=== PATIENT | female | born 1975 | race Caucasian/White ===

== ENCOUNTER 2017-10-09 22:43 | Emergency (ER) | payer OTHER, MEDICAID ==
[~2017-10-09] VITALS: Ht 160 cm; Wt 56.7 kg
[~2017-10-09 22:43] MED LIST: ACETAMINOPHEN-1 EAC1 PO; AFRIN15 ML NS; ASPIR 8181 MG PO; BACTRIM 400-801 EACH PO; BACTRIM DS TAB1 EACH PO; BENTYL 20 MG TA20 M1 PO; CIPROFLOXACIN500 M1 PO; CIPROFLOXACIN500 M3 PO; CIPROFLOXIN HC2.5 M1 OPHTHALMIC; CLEOCIN HCL150 MG PO; CLEOCIN HCL300 MG PO; FLOMAX0.4 MG PO; HYDROCODON-ACE1 EAC7 PO; HYDROCODONE-AP1 EAC6 PO; IBUPROFEN 800800 M1 PO; KEFLEX500 M1 PO; KLOR-CON 1010 MEQ PO; LAMISIL15 GM TP; LEXAPRO 10 MG T10 MG PO; LEXAPRO20 MG; LEXAPRO20 MG PO; MACROBID 100 M100 M1 PO; NOHOMEMEDICATIONS; NORCO 10-325 T1 EACH PO; NORCO 5-325 TA1 EACH PO; OMEPRAZOLE; ONDANSETRON HCL4 M2 PO; OXYBUTYNIN 5 MG5 M1 PO; PERCOCET 10-321 EACH OR; PERCOCET 10-321 EACH PO; PERCOCET 5-3251 EACH PO; PERCOCET 7.5-31 EACH PO; PERCOCET PO; PRILOSEC40 MG OR; VICODIN 5-3001 EACH PO; VICODIN 5-5001 EACH PO; ZOFRAN 4 MG ORAL4 M1 DIS; ZOFRAN ODT4 MG PO; ZOFRAN4 MG PO
[2017-10-09 23:07] LABS: URINE BILIRUBIN NEGATIVE (Negative); URINE BLOOD 3+ (Negative); URINE CLARITY CLEAR; URINE COLOR YELLOW; URINE GLUCOSE-RANDOM NEGATIVE (Negative); URINE KETONES NEGATIVE (Negative); URINE LEUKOCYTES-REFLEX NEGATIVE (Negative); URINE NITRITE-REFLEX NEGATIVE (Negative); URINE PROTEIN NEGATIVE (Negative); URINE SPECIFIC GRAVITY <= 1.005 (1.005-1.030); URINE UROBILINOGEN 0.2 E.U./dl (0.2-1.0)
[2017-10-09 23:14] LABS: CASTS None Seen /LPF (None Seen); CRYSTALS None Seen /LPF (None Seen); MUCUS 0-3 Light strn/LPF (None Seen); SQUAMOUS 0-3 Few /LPF (0-3); URINE RBC >20 Many /HPF (0-2); URINE WBC-REFLEX 0-5 Rare /HPF (0-5)
[2017-10-09 23:24] LABS: ABSOLUTE BASOPHILS 0.1 thou/uL (0.0-0.2); ABSOLUTE EOSINOPHILS 0.4 thou/uL (0.0-0.7); ABSOLUTE LYMPHOCYTES 3.1 thou/uL (0.8-5.3); ABSOLUTE MONOCYTES 0.6 thou/uL (0.0-1.2); ABSOLUTE NEUTROPHILS 2.4 thou/uL (1.6-8.1); BASOPHILS 1.2 %; EOSINOPHILS 5.6 %; HEMATOCRIT 40.1 % (37.0-47.0); HEMOGLOBIN 13.3 gm/dL (12.0-15.0); LYMPHOCYTES 48.3 %; MCV 84.8 fL (80.0-100.0); MONOCYTES 8.5 %; MPV 8.5 fl. (7.2-11.1); NUCLEATED RBCS 0 /100WBC; PLATELET COUNT* 238 thou/uL (150-400); POLYS 36.4 %; RBC 4.74 mil/uL (4.20-5.00); RDW-CV 14.3 % (10.5-14.5); WBC 6.5 thou/uL (4.0-11.0)
[2017-10-09 23:29] LABS: CALCIUM 8.6 mg/dL (8.5-10.1); CREATININE 0.8 mg/dL (0.6-1.3); POTASSIUM 3.5 mmol/L (3.5-5.1)
[2017-10-09 23:38] LABS: ALBUMIN 3.8 g/dL (3.4-5.0); TOTAL BILIRUBIN 0.1 mg/dL (<0.1-1.0); TOTAL PROTEIN 7.7 g/dL (6.4-8.2)
[2017-10-10 02:20] LABS: AMP/METHAMP Negative (Negative); BARBITURATES Negative (Negative); BENZODIAZEPINES Negative (Negative); COCAINE Negative (Negative); METHADONE Negative (Negative); OPIATES POSITIVE (Negative); PCP Negative (Negative); THC Negative (Negative)
[2017-10-10] MEDS ORDERED: FLOMAX0.4 MG PO (02:24)
[2017-10-10] MEDS ORDERED: FLEXERIL PO (02:24)
[2017-10-10] MEDS ORDERED: HYDROCODONE-AP1 EAC6 PO (02:24)
[2017-10-10 02:44] VITALS: BP 117/65
== END 2017-10-10 02:44 | disposition home or self-care (01) ==
LOC: M.ERS 22:43
PROVIDERS: Emergency Medicine; Emergency Medicine Emergency Medical Services
DX: N23 Unspecified renal colic (principal); F41.9 Anxiety disorder, unspecified; Z88.5 Allergy status to narcotic agent; Z88.8 Allergy status to other drugs, medicaments and biological substances; Z88.0 Allergy status to penicillin

== ENCOUNTER 2017-10-11 22:49 | Emergency (ER) | payer OTHER, MEDICAID ==
[~2017-10-11] VITALS: Ht 160 cm; Wt 56.7 kg
[~2017-10-11 22:49] MED LIST changes: +FLEXERIL PO
[2017-10-11 23:13] LABS: URINE BILIRUBIN NEGATIVE (Negative); URINE BLOOD 3+ (Negative); URINE CLARITY CLEAR; URINE COLOR YELLOW; URINE GLUCOSE-RANDOM NEGATIVE (Negative); URINE KETONES NEGATIVE (Negative); URINE LEUKOCYTES-REFLEX NEGATIVE (Negative); URINE NITRITE-REFLEX NEGATIVE (Negative); URINE PROTEIN NEGATIVE (Negative); URINE UROBILINOGEN 0.2 E.U./dl (0.2-1.0)
[2017-10-11 23:20] LABS: BACTERIA-REFLEX 1-9 Few /HPF (None Seen); CASTS None Seen /LPF (None Seen); CRYSTALS None Seen /LPF (None Seen); MUCUS 0-3 Light strn/LPF (None Seen); SQUAMOUS 0-3 Few /LPF (0-3); URINE RBC >20 Many /HPF (0-2); URINE WBC-REFLEX 0-5 Rare /HPF (0-5)
[2017-10-11 23:34] LABS: ABSOLUTE BASOPHILS 0.1 thou/uL (0.0-0.2); ABSOLUTE EOSINOPHILS 0.4 thou/uL (0.0-0.7); ABSOLUTE LYMPHOCYTES 2.7 thou/uL (0.8-5.3); ABSOLUTE MONOCYTES 0.6 thou/uL (0.0-1.2); ABSOLUTE NEUTROPHILS 5.1 thou/uL (1.6-8.1); HEMATOCRIT 38.5 % (37.0-47.0); HEMOGLOBIN 13.1 gm/dL (12.0-15.0); LYMPHOCYTES 30.8 %; MCH 28.5 pg (26.0-34.0); MCHC 33.9 g/dL (28.0-37.0); NUCLEATED RBCS 0 /100WBC; PLATELET COUNT* 241 thou/uL (150-400); POLYS 57.2 %; RBC 4.58 mil/uL (4.20-5.00); WBC 8.9 thou/uL (4.0-11.0)
[2017-10-12 00:05] LABS: CALCIUM 8.7 mg/dL (8.5-10.1); CREATININE 0.7 mg/dL (0.6-1.3); POTASSIUM 3.6 mmol/L (3.5-5.1)
[2017-10-12 00:15] LABS: ALBUMIN 3.7 g/dL (3.4-5.0); TOTAL BILIRUBIN 0.1 mg/dL (<0.1-1.0); TOTAL PROTEIN 7.5 g/dL (6.4-8.2)
[2017-10-12] MEDS ORDERED: BACTRIM DS TAB1 EACH PO (01:17)
[2017-10-12] MEDS ORDERED: MIRALAX17 GM PO (01:17)
[2017-10-12] MEDS ORDERED: PHENAZOPYRIDIN200 M2 PO (01:17)
[2017-10-12 01:34] VITALS: BP 105/69
== END 2017-10-12 01:34 | disposition home or self-care (01) ==
LOC: M.ERS 22:49
PROVIDERS: Emergency Medicine Emergency Medical Services
DX: R10.9 Unspecified abdominal pain (principal); K59.00 Constipation, unspecified; N39.0 Urinary tract infection, site not specified; R31.9 Hematuria, unspecified; F41.9 Anxiety disorder, unspecified; Z88.0 Allergy status to penicillin; Z88.8 Allergy status to other drugs, medicaments and biological substances; Z87.442 Personal history of urinary calculi

== ENCOUNTER 2018-01-05 18:07 | Emergency (ER) | payer OTHER, MEDICAID ==
[~2018-01-05] VITALS: Ht 160 cm; Wt 56.7 kg
[~2018-01-05 18:07] MED LIST changes: +MIRALAX17 GM PO; +PHENAZOPYRIDIN200 M2 PO
[2018-01-05 19:28] VITALS: BP 134/86
== END 2018-01-05 19:30 | disposition home or self-care (01) ==
LOC: M.ERS 18:07
DX: S93.491A Sprain of other ligament of right ankle, initial encounter (principal); F41.9 Anxiety disorder, unspecified; Z87.442 Personal history of urinary calculi; Z88.0 Allergy status to penicillin; Z88.8 Allergy status to other drugs, medicaments and biological substances; X58.XXXA Exposure to other specified factors, initial encounter; Y93.89 Activity, other specified; Y92.89 Other specified places as the place of occurrence of the external cause; Y99.8 Other external cause status

== ENCOUNTER 2018-08-24 20:32 | Emergency (ER) | payer OTHER, MEDICAID ==
[~2018-08-24] VITALS: Ht 160 cm; Wt 61.2 kg
[2018-08-24] MEDS ORDERED: CLONAZEPAM 0.50.5 M1 (20:41)
[2018-08-24 20:52] LABS: URINE BILIRUBIN NEGATIVE (Negative); URINE BLOOD 3+ (Negative); URINE CLARITY HAZY; URINE COLOR YELLOW; URINE GLUCOSE-RANDOM NEGATIVE (Negative); URINE KETONES NEGATIVE (Negative); URINE LEUKOCYTES-REFLEX NEGATIVE (Negative); URINE NITRITE-REFLEX NEGATIVE (Negative); URINE PROTEIN NEGATIVE (Negative); URINE SPECIFIC GRAVITY <= 1.005 (1.005-1.030); URINE UROBILINOGEN 0.2 E.U./dl (0.2-1.0)
[2018-08-24 21:01] LABS: AMP/METHAMP Negative (Negative); BARBITURATES Negative (Negative); BENZODIAZEPINES Negative (Negative); COCAINE Negative (Negative); METHADONE Negative (Negative); OPIATES POSITIVE (Negative); PCP Negative (Negative); SQUAMOUS 0-3 Few /LPF (0-3); THC Negative (Negative)
[2018-08-24 21:02] LABS: BACTERIA-REFLEX None Seen /HPF (None Seen); CASTS None Seen /LPF (None Seen); CRYSTALS None Seen /LPF (None Seen); URINE RBC >20 Many /HPF (0-2); URINE WBC-REFLEX None Seen /HPF (0-5)
[2018-08-24 21:11] LABS: ABSOLUTE BASOPHILS 0.1 thou/uL (0.0-0.2); ABSOLUTE EOSINOPHILS 0.8 thou/uL (0.0-0.7); ABSOLUTE MONOCYTES 0.8 thou/uL (0.0-1.2); ABSOLUTE NEUTROPHILS 6.3 thou/uL (1.6-8.1); BASOPHILS 0.9 %; EOSINOPHILS 7.2 %; HEMATOCRIT 38.7 % (37.0-47.0); HEMOGLOBIN 12.8 gm/dL (12.0-15.0); LYMPHOCYTES 27.3 %; MCH 28.7 pg (26.0-34.0); MCV 87.1 fL (80.0-100.0); MONOCYTES 7.3 %; MPV 8.5 fl. (7.2-11.1); NUCLEATED RBCS 0 /100WBC; PLATELET COUNT* 264 thou/uL (150-400); POLYS 57.3 %; RBC 4.45 mil/uL (4.20-5.00); RDW-CV 13.7 % (10.5-14.5)
[2018-08-24 21:17] LABS: ANION GAP 9 mmol/L (7-16); BUN 15 mg/dL (7-18); CHLORIDE 102 mmol/L (98-107); CO2 27 mmol/L (21-32); CREATININE 0.9 mg/dL (0.6-1.3); GLUCOSE 90 mg/dL (70-99); POTASSIUM 3.7 mmol/L (3.5-5.1); SODIUM 138 mmol/L (136-145)
[2018-08-24 21:23] LABS: ALBUMIN 3.9 g/dL (3.4-5.0); ALKALINE PHOSPHATASE 102 U/L (46-116); LIPASE 132 U/L (73-393); SGOT 14 U/L (15-37); SGPT 16 U/L (30-65); TOTAL BILIRUBIN 0.2 mg/dL (<0.1-1.0); TOTAL PROTEIN 7.6 g/dL (6.4-8.2); TROPONIN-I LEVEL <0.06 ng/mL (<0.06)
[2018-08-24 21:47] VITALS: BP 108/60
== END 2018-08-24 21:48 | disposition home or self-care (01) ==
LOC: M.ERS 20:32
PROVIDERS: Emergency Medicine; Physician Assistant
DX: R10.31 Right lower quadrant pain (principal); R31.9 Hematuria, unspecified; R11.10 Vomiting, unspecified; F41.9 Anxiety disorder, unspecified; Z90.49 Acquired absence of other specified parts of digestive tract; Z87.442 Personal history of urinary calculi; Z88.0 Allergy status to penicillin; Z88.8 Allergy status to other drugs, medicaments and biological substances

== ENCOUNTER 2018-12-02 22:47 | Inpatient (IN) | payer OTHER, MEDICAID ==
[~2018-12-02] VITALS: Ht 160 cm; Wt 62.0 kg
--- NOTE | ~2018-12-02 | OP ---
[facility] [address] [place] [address] OPERATIVE REPORT Name: KASIA SALAS Room: [address] [place] .R.#: [id number] Admission: 12/03/18 Attend Phys: Arsalan Colon MD Discharge: Date of : 73 Report #: [id number] THIS REPORT FOR: //name// CC: Bhupendra Colon DATE OF SERVICE: 12/06/2018 PREOPERATIVE DIAGNOSES: 1. Right-sided flank pain. 2. History of nephrolithiasis. POSTOPERATIVE DIAGNOSES: 1. Right-sided flank pain. 2. History of nephrolithiasis. PROCEDURES PERFORMED: 1. Cystoscopy with bilateral retrograde pyelograms. 2. Right ureteroscopy, diagnostic. 3. Right 4.8 x 28 double J ureteral stent placement. SURGEON: Stephon Bautista M.D. ANESTHESIA: General endotracheal. BRIEF HISTORY: The patient is a 43-year-old female with a history of nephrolithiasis who presented to the [facility] with right-sided flank pain. Due to the patient's extensive stone history and multiple prior imaging studies, she declined CT imaging to further evaluate the source of her pain. She was admitted for observation, and her right-sided flank pain persisted. She continued to decline CT imaging. Given the above, the recommendation was made for cystoscopy with right retrograde pyelogram, possible right ureteroscopy, possible laser lithotripsy, possible stone manipulation and retrieval and right ureteral stent placement. The risks of the procedure including the risks of bleeding, infection, damage to surrounding structures, need for additional procedures and anesthetic risks were discussed with the patient and she wished to proceed. PROCEDURE IN DETAIL: The risks and benefits of surgery were discussed with the patient, and she wished to proceed. Informed consent was obtained, and the patient was transferred to the operating room where she was laid supine on the operating room table. After the induction of adequate general endotracheal anesthesia and the administration of appropriate preoperative antibiotics, the patient's legs were placed in a modified dorsal lithotomy position taking care to pad all pressure points and avoid any hyperextension or hyperflexion of her joints. The patient's genitalia were prepped and draped [place] [address] OPERATIVE REPORT Name: KASIA SALAS Room: [address] [place] [facility]#: [id number] Admission: 12/03/18 Attend Phys: Arsalan Colon MD Discharge: Date of : 73 Report #: [id number] fashion. A timeout was then performed to ensure correct patient and procedure. At this time, a 22-Bangladeshi cystoscope sheath with a 30-degree lens was lubricated and advanced under direct vision and irrigation through the urethra and into the bladder. Initial cystoscopic evaluation revealed no intravesical calculi. The cystoscope was disarticulated and the bladder was drained. Cystoscopy was then performed under direct vision and irrigation. The patient's ureteral orifices were found to be in their normal anatomic location. There were surface changes of the trigone consistent with squamous metaplasia. Systematic panendoscopy revealed no gross bladder wall pathology. There were no papillary bladder tumors or suspicious mucosal lesions identified. At this time, a 5-Bangladeshi Pollack catheter was placed in the patient's right ureteral orifice, and a right retrograde pyelogram was performed. Contrast could be seen filling the distal, mid and proximal right ureter as well as the right collecting system. There appeared to be a possible filling defect in the mid ureter at the iliac vessels. The proximal ureter was mildly dilated and somewhat tortuous as it approached the ureteropelvic junction. Given the above, the decision was made to perform ureteroscopy. A 0.035 ZIPwire was advanced into the ureter and up into the kidney under fluoroscopic guidance. The wire was clamped to the drape as a safety wire. A semi-rigid ureteroscope was then advanced into the bladder under direct vision and irrigation. Under direct vision and pressure flow irrigation, the ureteroscope was able to be easily advanced into the right ureter. The ureteroscope was advanced up beyond the iliac vessels, and there was no stone identified. In order to ensure that there was not a proximal migration of the stone under pressure flow irrigation, a decision was made then to perform flexible ureteroscopy. The rigid ureteroscope was removed and a flexible ureteroscope was advanced without difficulty into the ureter alongside the wire. The ureteroscope was able to be advanced across the distal, mid and proximal ureter without difficulty. There was no stone identified within the ureter. The ureteroscope was then advanced all the way into the kidney. Each of the patient's calices were meticulously inspected, and there were no calculi identified. The ureteroscope was withdrawn back into the ureter down to the ureterovesical junction and was readvanced. Once again, there were no ureteral calculi identified. The ureteroscope was readvanced into the collecting system where retrograde pyelogram was repeated by injecting contrast through the ureteroscope. Using the pyelogram as a road map, each of the patient's calices were meticulously inspected, washing out the contrast from each arlyn under fluoroscopic guidance. Once again, there were no renal collecting system calculi identified. The ureteroscope was then withdrawn the length of the ureter from the UPJ to the UVJ. Once again, there were no ureteral calculi identified. At this time, a 4.8 x 28 double-J ureteral stent was advanced over the safety wire and into position. The wire was withdrawn deploying the stent. A good coil of the stent was identified within the right renal pelvis under fluoroscopy, and a good coil of the stent was identified within the bladder under direct vision with the cystoscope. Given the lack of significant findings within the right system, the decision was made to perform a left retrograde pyelogram prior to concluding the case. The Pollack [place] [address] OPERATIVE REPORT Name: KASIA SALAS Room: [address] [place] [facility].#: [id number] Admission: 12/03/18 Attend Phys: Arsalan Colon MD Discharge: Date of : 73 Report #: [id number] the left ureteral orifice, and a left retrograde pyelogram was performed. Contrast could be seen filling the distal, mid and proximal left ureter as well as the left collecting system. There were no filling defects or signs of obstruction on left retrograde pyelogram. At this point, the decision was made to conclude the procedure. The cystoscope was disarticulated and the bladder was drained. The patient was returned to a supine position, awakened from anesthesia and transferred to the postoperative care unit in stable condition. The patient tolerated the procedure well. COMPLICATIONS: None. ESTIMATED BLOOD LOSS: None. IV FLUIDS: Crystalloid. DRAINS: Right 4.8 x 28 double-J ureteral stent. SPECIMENS: None. FINDINGS: 1. No gross bladder wall pathology. No intravesical calculi identified. 2. Right retrograde pyelogram demonstrating a possible filling defect of the mid ureter at the iliac vessels with proximal ureteral tortuosity and mild ectasia. 3. Right ureteroscopy demonstrating no right collecting system or ureteral calculus. 4. Right 4.8 x 28 double-J ureteral stent in good position by fluoroscopy and direct vision. 5. Normal left retrograde pyelogram. By: [id number] Bautista MD /nt
[~2018-12-02 22:47] MED LIST changes: +CLONAZEPAM 0.50.5 M1 PO
[2018-12-02 22:55] VITALS: BP 149/72
[2018-12-02] MEDS ORDERED: NORCO 10-325 T1 EACH PO (22:59)
[2018-12-02 23:00] LABS: URINE BILIRUBIN NEGATIVE (Negative); URINE BLOOD 3+ (Negative); URINE CLARITY CLEAR; URINE COLOR YELLOW; URINE GLUCOSE-RANDOM NEGATIVE (Negative); URINE KETONES NEGATIVE (Negative); URINE LEUKOCYTES-REFLEX NEGATIVE (Negative); URINE NITRITE-REFLEX NEGATIVE (Negative); URINE PROTEIN NEGATIVE (Negative); URINE UROBILINOGEN 0.2 E.U./dl (0.2-1.0)
[2018-12-02 23:11] LABS: CASTS None Seen /LPF (None Seen); CRYSTALS None Seen /LPF (None Seen); MUCUS None Seen strn/LPF (None Seen); SQUAMOUS 0-3 Few /LPF (0-3)
[2018-12-02 23:12] LABS: BACTERIA-REFLEX None Seen /HPF (None Seen); URINE WBC-REFLEX None Seen /HPF (0-5)
[2018-12-02 23:46] LABS: ABSOLUTE BASOPHILS 0.1 thou/uL (0.0-0.2); ABSOLUTE EOSINOPHILS 0.6 thou/uL (0.0-0.7); ABSOLUTE LYMPHOCYTES 2.7 thou/uL (0.8-5.3); ABSOLUTE MONOCYTES 0.5 thou/uL (0.0-1.2); ABSOLUTE NEUTROPHILS 3.6 thou/uL (1.6-8.1); BASOPHILS 1.4 %; EOSINOPHILS 7.8 %; HEMATOCRIT 37.4 % (37.0-47.0); HEMOGLOBIN 12.7 gm/dL (12.0-15.0); LYMPHOCYTES 35.4 %; MCH 29.5 pg (26.0-34.0); MCHC 34.1 g/dL (28.0-37.0); MCV 86.5 fL (80.0-100.0); MONOCYTES 7.2 %; MPV 8.3 fl. (7.2-11.1); NUCLEATED RBCS 0 /100WBC; PLATELET COUNT* 245 thou/uL (150-400); POLYS 48.2 %; RBC 4.32 mil/uL (4.20-5.00); RDW-CV 13.5 % (10.5-14.5); WBC 7.5 thou/uL (4.0-11.0)
[2018-12-02 23:55] LABS: ALBUMIN 3.3 g/dL (3.4-5.0); ALKALINE PHOSPHATASE 103 U/L (46-116); ANION GAP 6 mmol/L (7-16); BUN 13 mg/dL (7-18); CALCIUM 8.6 mg/dL (8.5-10.1); CHLORIDE 104 mmol/L (98-107); CO2 27 mmol/L (21-32); CREATININE 0.9 mg/dL (0.6-1.3); GLUCOSE 98 mg/dL (70-99); LIPASE 158 U/L (73-393); POTASSIUM 3.7 mmol/L (3.5-5.1); SGOT 12 U/L (15-37); SGPT 14 U/L (30-65); SODIUM 137 mmol/L (136-145); TOTAL BILIRUBIN < 0.1 mg/dL (<0.1-1.0); TOTAL PROTEIN 6.7 g/dL (6.4-8.2)
[2018-12-03 04:11] VITALS: BP 116/77
[2018-12-03 04:25] VITALS: BP 95/50
[2018-12-03 16:38] VITALS: BP 102/55
[2018-12-03 20:00] VITALS: BP 106/54
[2018-12-04] VITALS: BP 104/56
[2018-12-04 04:00] VITALS: BP 103/60
[2018-12-04 08:07] LABS: CALCIUM 8.1 mg/dL (8.5-10.1); CREATININE 0.7 mg/dL (0.6-1.3); POTASSIUM 4.3 mmol/L (3.5-5.1)
[2018-12-04 15:57] VITALS: BP 112/66
[2018-12-04 20:00] VITALS: BP 99/52
[2018-12-05 07:26] VITALS: BP 105/55
[2018-12-05 16:20] VITALS: BP 113/74
[2018-12-05 20:00] VITALS: BP 108/61
[2018-12-06 07:25] VITALS: BP 125/77
[2018-12-06] MEDS ORDERED: FLOMAX0.4 MG PO (08:48)
[2018-12-06] MEDS ORDERED: NORCO 10-325 T1 EACH PO (08:48)
[2018-12-06 09:56] VITALS: BP 125/77
[2018-12-06 11:21] VITALS: BP 125/77
[2018-12-06 13:43] VITALS: BP 120/65
[2018-12-06 15:25] VITALS: BP 111/57
[2018-12-06 23:44] VITALS: BP 130/74
[2018-12-07 07:45] VITALS: BP 145/78
[2018-12-07] MEDS ORDERED: ZOFRAN ODT4 MG DISSOLVE (09:35)
[2018-12-07] MEDS ORDERED: PERCOCET PO (09:35)
[2018-12-07 15:38] VITALS: BP 145/78
[2018-12-07 16:00] VITALS: BP 120/67
[2018-12-07 18:01] VITALS: BP 145/78
== END 2018-12-07 14:30 | disposition home or self-care (01) | DRG 661 ==
LOC: M.ERS 22:47 → M.TBA-ER 12-03 03:34 → M.ORTHSURG 12-03 03:34
PROVIDERS: Physician Assistant; Urology; ADMIT Internal Medicine
PROC: 0T768DZ Dilation of Right Ureter with Intraluminal Device, Via Natural or Artificial Opening Endoscopic (ICD-10-PCS; principal; 2018-12-06)
PROC: BT141ZZ Fluoroscopy of Kidneys, Ureters and Bladder using Low Osmolar Contrast (ICD-10-PCS; principal; 2018-12-06)
DX: N20.2 Calculus of kidney with calculus of ureter (principal); F41.9 Anxiety disorder, unspecified; R31.29 Other microscopic hematuria; Z90.710 Acquired absence of both cervix and uterus; Z90.49 Acquired absence of other specified parts of digestive tract; Z87.442 Personal history of urinary calculi; Z79.899 Other long term (current) drug therapy; Z88.0 Allergy status to penicillin; Z88.8 Allergy status to other drugs, medicaments and biological substances

== ENCOUNTER 2019-01-03 15:17 | Emergency (ER) | payer OTHER, MEDICAID ==
[~2019-01-03] VITALS: Ht 160 cm; Wt 61.2 kg
[~2019-01-03 15:17] MED LIST changes: +ZOFRAN ODT4 MG DISSOLVE
[2019-01-03 15:38] LABS: URINE BILIRUBIN NEGATIVE (Negative); URINE BLOOD NEGATIVE (Negative); URINE CLARITY CLEAR; URINE COLOR YELLOW; URINE GLUCOSE-RANDOM NEGATIVE (Negative); URINE KETONES TRACE (Negative); URINE LEUKOCYTES-REFLEX NEGATIVE (Negative); URINE NITRITE-REFLEX NEGATIVE (Negative); URINE PROTEIN TRACE (Negative); URINE SPECIFIC GRAVITY >= 1.030 (1.005-1.030); URINE UROBILINOGEN 0.2 E.U./dl (0.2-1.0)
[2019-01-03 16:02] LABS: ABSOLUTE BASOPHILS 0.1 thou/uL (0.0-0.2); ABSOLUTE EOSINOPHILS 0.4 thou/uL (0.0-0.7); ABSOLUTE LYMPHOCYTES 2.6 thou/uL (0.8-5.3); ABSOLUTE MONOCYTES 0.5 thou/uL (0.0-1.2); ABSOLUTE NEUTROPHILS 3.5 thou/uL (1.6-8.1); BASOPHILS 1.2 %; EOSINOPHILS 6.2 %; HEMATOCRIT 36.6 % (37.0-47.0); HEMOGLOBIN 12.4 gm/dL (12.0-15.0); LYMPHOCYTES 36.3 %; MCH 28.9 pg (26.0-34.0); MCHC 33.8 g/dL (28.0-37.0); MCV 85.6 fL (80.0-100.0); MONOCYTES 6.8 %; MPV 7.9 fl. (7.2-11.1); NUCLEATED RBCS 0 /100WBC; PLATELET COUNT* 255 thou/uL (150-400); POLYS 49.5 %; RBC 4.27 mil/uL (4.20-5.00); RDW-CV 12.8 % (10.5-14.5)
[2019-01-03 16:23] LABS: ALBUMIN 3.6 g/dL (3.4-5.0); CALCIUM 9.1 mg/dL (8.5-10.1); CREATININE 0.9 mg/dL (0.6-1.3); POTASSIUM 3.9 mmol/L (3.5-5.1); TOTAL BILIRUBIN 0.2 mg/dL (<0.1-1.0); TOTAL PROTEIN 6.9 g/dL (6.4-8.2)
[2019-01-03] MEDS ORDERED: NORCO 5-325 TA1 EACH PO (16:40)
[2019-01-03 17:37] VITALS: BP 105/75
== END 2019-01-03 17:37 | disposition home or self-care (01) ==
LOC: M.ERS 15:17
PROVIDERS: Physician Assistant
DX: R10.30 Lower abdominal pain, unspecified (principal); Z87.442 Personal history of urinary calculi; F41.9 Anxiety disorder, unspecified; Z88.8 Allergy status to other drugs, medicaments and biological substances; Z88.4 Allergy status to anesthetic agent; Z88.6 Allergy status to analgesic agent; Z88.0 Allergy status to penicillin; Z90.49 Acquired absence of other specified parts of digestive tract; Z90.710 Acquired absence of both cervix and uterus

== ENCOUNTER 2019-01-30 22:44 | Emergency (ER) | payer OTHER, MEDICAID ==
[~2019-01-30] VITALS: Ht 160 cm; Wt 61.2 kg
[2019-01-30] MEDS ORDERED: NORCO 10-325 T1 EACH (22:55)
[2019-01-30 23:19] LABS: ABSOLUTE BASOPHILS 0.1 thou/uL (0.0-0.2); ABSOLUTE EOSINOPHILS 0.4 thou/uL (0.0-0.7); ABSOLUTE LYMPHOCYTES 3.5 thou/uL (0.8-5.3); ABSOLUTE MONOCYTES 0.6 thou/uL (0.0-1.2); ABSOLUTE NEUTROPHILS 4.7 thou/uL (1.6-8.1); EOSINOPHILS 4.7 %; HEMATOCRIT 39.2 % (37.0-47.0); HEMOGLOBIN 13.1 gm/dL (12.0-15.0); LYMPHOCYTES 37.1 %; MCH 28.9 pg (26.0-34.0); MCHC 33.4 g/dL (28.0-37.0); MCV 86.5 fL (80.0-100.0); MONOCYTES 6.4 %; NUCLEATED RBCS 0 /100WBC; PLATELET COUNT* 279 thou/uL (150-400); POLYS 50.8 %; RBC 4.54 mil/uL (4.20-5.00); RDW-CV 13.5 % (10.5-14.5); WBC 9.3 thou/uL (4.0-11.0)
[2019-01-30 23:23] LABS: CALCIUM 8.7 mg/dL (8.5-10.1); CREATININE 0.8 mg/dL (0.6-1.3); POTASSIUM 3.9 mmol/L (3.5-5.1)
[2019-01-30 23:27] LABS: TOTAL BILIRUBIN 0.2 mg/dL (<0.1-1.0); TOTAL PROTEIN 7.8 g/dL (6.4-8.2)
[2019-01-31 01:06] LABS: URINE BILIRUBIN NEGATIVE (Negative); URINE BLOOD 3+ (Negative); URINE CLARITY CLEAR; URINE COLOR STRAW; URINE GLUCOSE-RANDOM NEGATIVE (Negative); URINE KETONES NEGATIVE (Negative); URINE LEUKOCYTES-REFLEX NEGATIVE (Negative); URINE NITRITE-REFLEX NEGATIVE (Negative); URINE PROTEIN NEGATIVE (Negative); URINE SPECIFIC GRAVITY <= 1.005 (1.005-1.030); URINE UROBILINOGEN 0.2 E.U./dl (0.2-1.0)
[2019-01-31 01:32] LABS: BACTERIA-REFLEX 1-9 Few /HPF (None Seen); CASTS None Seen /LPF (None Seen); CRYSTALS None Seen /LPF (None Seen); MUCUS None Seen strn/LPF (None Seen); SQUAMOUS 0-3 Few /LPF (0-3); URINE WBC-REFLEX None Seen /HPF (0-5)
[2019-01-31 02:44] VITALS: BP 121/88
== END 2019-01-31 02:44 | disposition home or self-care (01) ==
LOC: M.ERS 22:44
PROVIDERS: Nurse Practitioner Family
DX: N23 Unspecified renal colic (principal); F41.9 Anxiety disorder, unspecified; Z90.49 Acquired absence of other specified parts of digestive tract; Z90.710 Acquired absence of both cervix and uterus; Z88.0 Allergy status to penicillin; Z88.8 Allergy status to other drugs, medicaments and biological substances

== ENCOUNTER 2019-02-28 18:48 | Emergency (ER) | payer OTHER, MEDICAID ==
[~2019-02-28] VITALS: Ht 160 cm; Wt 61.2 kg
[~2019-02-28 18:48] MED LIST changes: +NORCO 10-325 T1 EACH
[2019-02-28 19:10] LABS: URINE BILIRUBIN NEGATIVE (Negative); URINE BLOOD 3+ (Negative); URINE CLARITY CLEAR; URINE COLOR STRAW; URINE GLUCOSE-RANDOM NEGATIVE (Negative); URINE KETONES NEGATIVE (Negative); URINE LEUKOCYTES-REFLEX NEGATIVE (Negative); URINE NITRITE-REFLEX NEGATIVE (Negative); URINE PROTEIN NEGATIVE (Negative); URINE UROBILINOGEN 0.2 E.U./dl (0.2-1.0)
[2019-02-28 19:38] LABS: ABSOLUTE BASOPHILS 0.1 thou/uL (0.0-0.2); ABSOLUTE EOSINOPHILS 0.3 thou/uL (0.0-0.7); ABSOLUTE LYMPHOCYTES 2.9 thou/uL (0.8-5.3); ABSOLUTE MONOCYTES 0.7 thou/uL (0.0-1.2); ABSOLUTE NEUTROPHILS 5.2 thou/uL (1.6-8.1); BASOPHILS 0.7 %; EOSINOPHILS 3.5 %; HEMATOCRIT 37.5 % (37.0-47.0); HEMOGLOBIN 12.6 gm/dL (12.0-15.0); LYMPHOCYTES 31.3 %; MCHC 33.6 g/dL (28.0-37.0); MCV 86.4 fL (80.0-100.0); MONOCYTES 7.5 %; MPV 8.2 fl. (7.2-11.1); NUCLEATED RBCS 0 /100WBC; PLATELET COUNT* 265 thou/uL (150-400); RBC 4.33 mil/uL (4.20-5.00); RDW-CV 13.6 % (10.5-14.5); WBC 9.2 thou/uL (4.0-11.0)
[2019-02-28 19:43] LABS: ANION GAP 8 mmol/L (7-16); BUN 12 mg/dL (7-18); CALCIUM 8.9 mg/dL (8.5-10.1); CHLORIDE 104 mmol/L (98-107); CO2 26 mmol/L (21-32); CREATININE 0.7 mg/dL (0.6-1.3); GLUCOSE 89 mg/dL (70-99); POTASSIUM 3.7 mmol/L (3.5-5.1); SODIUM 138 mmol/L (136-145)
[2019-02-28 19:48] LABS: ALBUMIN 3.6 g/dL (3.4-5.0); ALKALINE PHOSPHATASE 114 U/L (46-116); SGOT 13 U/L (15-37); SGPT < 6 U/L (30-65); TOTAL BILIRUBIN 0.3 mg/dL (<0.1-1.0)
[2019-02-28 19:50] LABS: SQUAMOUS 0-3 Few /LPF (0-3); URINE WBC-REFLEX 0-5 Rare /HPF (0-5)
[2019-02-28 19:51] LABS: BACTERIA-REFLEX 1-9 Few /HPF (None Seen); CASTS None Seen /LPF (None Seen); CRYSTALS None Seen /LPF (None Seen); MUCUS None Seen strn/LPF (None Seen); URINE RBC >20 Many /HPF (0-2)
[2019-02-28] MEDS ORDERED: PERCOCET PO (21:52)
[2019-02-28 22:31] VITALS: BP 130/69
== END 2019-02-28 22:25 | disposition home or self-care (01) ==
LOC: M.ERS 18:48
PROVIDERS: Nurse Practitioner Family
DX: N20.0 Calculus of kidney (principal); F41.9 Anxiety disorder, unspecified; Z88.0 Allergy status to penicillin; Z88.6 Allergy status to analgesic agent; Z88.8 Allergy status to other drugs, medicaments and biological substances; Z90.710 Acquired absence of both cervix and uterus; Z98.890 Other specified postprocedural states

== ENCOUNTER 2019-03-01 22:09 | Emergency (ER) | payer OTHER, MEDICAID ==
[~2019-03-01] VITALS: Ht 160 cm; Wt 63.5 kg
[2019-03-01 22:33] LABS: URINE BILIRUBIN NEGATIVE (Negative); URINE BLOOD 3+ (Negative); URINE CLARITY CLEAR; URINE COLOR YELLOW; URINE GLUCOSE-RANDOM NEGATIVE (Negative); URINE KETONES NEGATIVE (Negative); URINE LEUKOCYTES-REFLEX NEGATIVE (Negative); URINE NITRITE-REFLEX NEGATIVE (Negative); URINE PROTEIN NEGATIVE (Negative); URINE UROBILINOGEN 0.2 E.U./dl (0.2-1.0)
[2019-03-01 22:59] LABS: ABSOLUTE BASOPHILS 0.1 thou/uL (0.0-0.2); ABSOLUTE EOSINOPHILS 0.4 thou/uL (0.0-0.7); ABSOLUTE LYMPHOCYTES 2.7 thou/uL (0.8-5.3); ABSOLUTE MONOCYTES 0.5 thou/uL (0.0-1.2); ABSOLUTE NEUTROPHILS 3.8 thou/uL (1.6-8.1); BASOPHILS 0.8 %; EOSINOPHILS 5.1 %; HEMATOCRIT 38.1 % (37.0-47.0); HEMOGLOBIN 12.8 gm/dL (12.0-15.0); LYMPHOCYTES 36.7 %; MCH 28.9 pg (26.0-34.0); MCHC 33.5 g/dL (28.0-37.0); MCV 86.3 fL (80.0-100.0); MONOCYTES 6.8 %; MPV 8.1 fl. (7.2-11.1); NUCLEATED RBCS 0 /100WBC; PLATELET COUNT* 238 thou/uL (150-400); POLYS 50.6 %; RBC 4.42 mil/uL (4.20-5.00); RDW-CV 13.6 % (10.5-14.5); WBC 7.5 thou/uL (4.0-11.0)
[2019-03-01 23:02] LABS: AMP/METHAMP Negative (Negative); BARBITURATES Negative (Negative); BENZODIAZEPINES Negative (Negative); COCAINE Negative (Negative); METHADONE Negative (Negative); OPIATES POSITIVE (Negative); PCP Negative (Negative); THC Negative (Negative)
[2019-03-01 23:14] LABS: CALCIUM 8.8 mg/dL (8.5-10.1); CREATININE 0.8 mg/dL (0.6-1.3); POTASSIUM 3.7 mmol/L (3.5-5.1)
[2019-03-01 23:19] LABS: ALBUMIN 3.4 g/dL (3.4-5.0); TOTAL BILIRUBIN 0.2 mg/dL (<0.1-1.0); TOTAL PROTEIN 6.7 g/dL (6.4-8.2)
[2019-03-01 23:20] LABS: CASTS None Seen /LPF (None Seen); SQUAMOUS 4-10 Moderate /LPF (0-3); URINE WBC-REFLEX 0-5 Rare /HPF (0-5)
[2019-03-01 23:21] LABS: BACTERIA-REFLEX 1-9 Few /HPF (None Seen); CRYSTALS None Seen /LPF (None Seen); URINE RBC >20 Many /HPF (0-2)
[2019-03-02 00:33] VITALS: BP 127/81
== END 2019-03-02 00:33 | disposition home or self-care (01) ==
LOC: M.ERS 22:09
PROVIDERS: Emergency Medicine
DX: N23 Unspecified renal colic (principal); R11.2 Nausea with vomiting, unspecified; F41.9 Anxiety disorder, unspecified; Z88.0 Allergy status to penicillin; Z88.6 Allergy status to analgesic agent; Z88.8 Allergy status to other drugs, medicaments and biological substances; Z87.442 Personal history of urinary calculi; Z90.710 Acquired absence of both cervix and uterus; Z98.890 Other specified postprocedural states; Z79.899 Other long term (current) drug therapy

== ENCOUNTER 2019-03-24 19:01 | Emergency (ER) | payer OTHER, MEDICAID ==
[~2019-03-24] VITALS: Ht 160 cm; Wt 61.2 kg
[2019-03-24 19:42] LABS: URINE BILIRUBIN NEGATIVE (Negative); URINE BLOOD 3+ (Negative); URINE CLARITY CLEAR; URINE COLOR YELLOW; URINE GLUCOSE-RANDOM NEGATIVE (Negative); URINE KETONES NEGATIVE (Negative); URINE LEUKOCYTES-REFLEX NEGATIVE (Negative); URINE NITRITE-REFLEX NEGATIVE (Negative); URINE PROTEIN NEGATIVE (Negative); URINE UROBILINOGEN 0.2 E.U./dl (0.2-1.0)
[2019-03-24 19:48] LABS: ABSOLUTE BASOPHILS 0.1 thou/uL (0.0-0.2); ABSOLUTE EOSINOPHILS 0.3 thou/uL (0.0-0.7); ABSOLUTE LYMPHOCYTES 3.1 thou/uL (0.8-5.3); ABSOLUTE MONOCYTES 0.5 thou/uL (0.0-1.2); ABSOLUTE NEUTROPHILS 3.2 thou/uL (1.6-8.1); BASOPHILS 1.1 %; EOSINOPHILS 4.5 %; HEMATOCRIT 39.2 % (37.0-47.0); HEMOGLOBIN 13.3 gm/dL (12.0-15.0); LYMPHOCYTES 43.4 %; MCH 28.8 pg (26.0-34.0); MCV 84.7 fL (80.0-100.0); MONOCYTES 6.5 %; MPV 8.1 fl. (7.2-11.1); NUCLEATED RBCS 0 /100WBC; PLATELET COUNT* 318 thou/uL (150-400); POLYS 44.5 %; RBC 4.62 mil/uL (4.20-5.00); RDW-CV 13.1 % (10.5-14.5); WBC 7.1 thou/uL (4.0-11.0)
[2019-03-24 19:53] LABS: ANION GAP 9 mmol/L (7-16); BUN 13 mg/dL (7-18); CALCIUM 8.6 mg/dL (8.5-10.1); CHLORIDE 105 mmol/L (98-107); CO2 28 mmol/L (21-32); CREATININE 0.7 mg/dL (0.6-1.3); GLUCOSE 86 mg/dL (70-99); POTASSIUM 3.6 mmol/L (3.5-5.1); SODIUM 142 mmol/L (136-145)
[2019-03-24 19:53] LABS: SQUAMOUS >10 Many /LPF (0-3)
[2019-03-24 19:54] LABS: BACTERIA-REFLEX None Seen /HPF (None Seen); CASTS None Seen /LPF (None Seen); CRYSTALS None Seen /LPF (None Seen); URINE RBC >20 Many /HPF (0-2); URINE WBC-REFLEX None Seen /HPF (0-5)
[2019-03-24 20:02] LABS: ALBUMIN 3.7 g/dL (3.4-5.0); ALKALINE PHOSPHATASE 122 U/L (46-116); LIPASE 138 U/L (73-393); SGOT 14 U/L (15-37); SGPT 18 U/L (30-65); TOTAL BILIRUBIN 0.2 mg/dL (<0.1-1.0); TOTAL PROTEIN 7.4 g/dL (6.4-8.2); TROPONIN-I LEVEL <0.06 ng/mL (<0.06)
[2019-03-24 21:03] VITALS: BP 125/95
--- NOTE | 2019-03-25 14:01 | EKG ---
[place] [address] ELECTROCARDIOGRAM REPORT Name: JOSUEKASIA [id number] Admission: 03/24/19 Attend Phys: Discharge: 03/24/19 Date of : 73 Report #: [id number] THIS REPORT FOR: //name// [facility] ED Test Date: 2019-03-24 Test Time: 19:53:38 Pat Name: KASIA SALAS Department: Room: Gender: F [employer] Consultant: ALHAJI : 1975 Requested By: Abner Fleming Order Number: [id number] MD: Alexandr Lopez Measurements Intervals [place] Rate: 61 P: 46 PA: 139 QRS: 57 QRSD: 87 T: 58 QT: 389 QTc: 392 Interpretive Statements Sinus rhythm Compared to ECG 06/25/2011 18:56:52 No significant changes Electronically Signed On 03-25-2019 14:01:37 CDT by Alexandr Lopez [email or web address] <ELECTRONICALLY SIGNED> By: Alexandr Lopez MD, [facility] 03/25/19 1401 52 52 Alexandr Lopez MD, FACC /EPI
== END 2019-03-24 21:03 | disposition home or self-care (01) ==
LOC: M.ERS 19:01
PROVIDERS: Physician Assistant
DX: R10.31 Right lower quadrant pain (principal); R31.9 Hematuria, unspecified; F41.9 Anxiety disorder, unspecified; Z87.442 Personal history of urinary calculi; Z90.710 Acquired absence of both cervix and uterus; Z98.890 Other specified postprocedural states; Z88.6 Allergy status to analgesic agent; Z88.0 Allergy status to penicillin; Z88.8 Allergy status to other drugs, medicaments and biological substances

== ENCOUNTER 2019-04-19 19:08 | Emergency (ER) | payer OTHER, MEDICAID ==
[~2019-04-19] VITALS: Ht 160 cm; Wt 61.2 kg
[2019-04-19 20:10] LABS: URINE BILIRUBIN NEGATIVE (Negative); URINE BLOOD 3+ (Negative); URINE CLARITY CLEAR; URINE COLOR YELLOW; URINE GLUCOSE-RANDOM NEGATIVE (Negative); URINE KETONES NEGATIVE (Negative); URINE LEUKOCYTES-REFLEX NEGATIVE (Negative); URINE NITRITE-REFLEX NEGATIVE (Negative); URINE PROTEIN NEGATIVE (Negative); URINE SPECIFIC GRAVITY 1.025 (1.005-1.030); URINE UROBILINOGEN 0.2 E.U./dl (0.2-1.0)
[2019-04-19 20:19] LABS: CASTS None Seen /LPF (None Seen); MUCUS None Seen strn/LPF (None Seen); SQUAMOUS >10 Many /LPF (0-3)
[2019-04-19 20:20] LABS: URINE RBC >20 Many /HPF (0-2)
[2019-04-19 20:21] LABS: BACTERIA-REFLEX None Seen /HPF (None Seen); CRYSTALS None Seen /LPF (None Seen); URINE WBC-REFLEX None Seen /HPF (0-5)
[2019-04-19 20:34] LABS: ABSOLUTE BASOPHILS 0.1 thou/uL (0.0-0.2); ABSOLUTE EOSINOPHILS 0.3 thou/uL (0.0-0.7); ABSOLUTE LYMPHOCYTES 2.4 thou/uL (0.8-5.3); ABSOLUTE MONOCYTES 0.5 thou/uL (0.0-1.2); ABSOLUTE NEUTROPHILS 2.9 thou/uL (1.6-8.1); BASOPHILS 1.2 %; EOSINOPHILS 5.4 %; HEMOGLOBIN 13.1 gm/dL (12.0-15.0); LYMPHOCYTES 39.2 %; MCH 28.9 pg (26.0-34.0); MCHC 33.5 g/dL (28.0-37.0); MPV 8.2 fl. (7.2-11.1); NUCLEATED RBCS 0 /100WBC; PLATELET COUNT* 254 thou/uL (150-400); POLYS 46.2 %; RBC 4.53 mil/uL (4.20-5.00); RDW-CV 13.4 % (10.5-14.5); WBC 6.2 thou/uL (4.0-11.0)
[2019-04-19 20:47] LABS: CALCIUM 9.3 mg/dL (8.5-10.1); CREATININE 0.7 mg/dL (0.6-1.3); POTASSIUM 3.7 mmol/L (3.5-5.1)
[2019-04-19 20:52] LABS: ALBUMIN 3.8 g/dL (3.4-5.0); TOTAL BILIRUBIN 0.3 mg/dL (<0.1-1.0); TOTAL PROTEIN 7.5 g/dL (6.4-8.2)
[2019-04-19] MEDS ORDERED: ZOFRAN ODT4 MG PO (23:37)
[2019-04-20] VITALS: BP 118/60
== END 2019-04-20 | disposition home or self-care (01) ==
LOC: M.ERS 19:08
PROVIDERS: Nurse Practitioner Family
DX: N23 Unspecified renal colic (principal); R11.2 Nausea with vomiting, unspecified; F41.9 Anxiety disorder, unspecified; Z90.710 Acquired absence of both cervix and uterus; Z90.49 Acquired absence of other specified parts of digestive tract; Z98.51 Tubal ligation status; Z88.0 Allergy status to penicillin; Z88.8 Allergy status to other drugs, medicaments and biological substances; Z88.6 Allergy status to analgesic agent; Z87.442 Personal history of urinary calculi

== ENCOUNTER 2019-05-11 17:55 | Emergency (ER) | payer OTHER ==
[~2019-05-11] VITALS: Ht 160 cm; Wt 64.9 kg
[2019-05-11 18:30] LABS: URINE BILIRUBIN NEGATIVE (Negative); URINE BLOOD 3+ (Negative); URINE CLARITY CLEAR; URINE COLOR YELLOW; URINE GLUCOSE-RANDOM NEGATIVE (Negative); URINE KETONES NEGATIVE (Negative); URINE LEUKOCYTES-REFLEX NEGATIVE (Negative); URINE NITRITE-REFLEX NEGATIVE (Negative); URINE PROTEIN NEGATIVE (Negative); URINE SPECIFIC GRAVITY >= 1.030 (1.005-1.030); URINE UROBILINOGEN 0.2 E.U./dl (0.2-1.0)
[2019-05-11 18:47] LABS: CASTS None Seen /LPF (None Seen); CRYSTALS None Seen /LPF (None Seen); SQUAMOUS >10 Many /LPF (0-3); URINE RBC >20 Many /HPF (0-2); URINE WBC-REFLEX None Seen /HPF (0-5)
[2019-05-11 18:48] LABS: BACTERIA-REFLEX None Seen /HPF (None Seen); MUCUS None Seen strn/LPF (None Seen)
[2019-05-11 19:19] VITALS: BP 125/89
== END 2019-05-11 19:20 | disposition home or self-care (01) ==
LOC: M.ERS 17:55
PROVIDERS: Personal Emergency Response Attendant
DX: N23 Unspecified renal colic (principal); F41.9 Anxiety disorder, unspecified; Z88.8 Allergy status to other drugs, medicaments and biological substances; Z88.4 Allergy status to anesthetic agent; Z88.6 Allergy status to analgesic agent; Z88.0 Allergy status to penicillin; Z87.442 Personal history of urinary calculi; Z90.49 Acquired absence of other specified parts of digestive tract; Z90.710 Acquired absence of both cervix and uterus

== ENCOUNTER 2019-05-11 21:40 | Emergency (ER) | payer OTHER ==
[~2019-05-11] VITALS: Ht 160 cm; Wt 65.8 kg
[2019-05-12 01:15] VITALS: BP 130/61
== END 2019-05-12 01:17 | disposition home or self-care (01) ==
LOC: M.ERS 21:40
DX: N23 Unspecified renal colic (principal); F41.9 Anxiety disorder, unspecified; Z88.8 Allergy status to other drugs, medicaments and biological substances; Z88.4 Allergy status to anesthetic agent; Z88.6 Allergy status to analgesic agent; Z88.0 Allergy status to penicillin; Z87.442 Personal history of urinary calculi; Z90.710 Acquired absence of both cervix and uterus; Z90.49 Acquired absence of other specified parts of digestive tract

== ENCOUNTER 2019-10-05 00:16 | Emergency (ER) | payer OTHER ==
[~2019-10-05] VITALS: Ht 160 cm; Wt 63.5 kg
[2019-10-05 00:37] LABS: AMP/METHAMP Negative (Negative); BARBITURATES Negative (Negative); BENZODIAZEPINES Negative (Negative); COCAINE Negative (Negative); METHADONE Negative (Negative); OPIATES POSITIVE (Negative); PCP Negative (Negative); THC Negative (Negative)
[2019-10-05 00:37] LABS: URINE BILIRUBIN NEGATIVE (Negative); URINE BLOOD 3+ (Negative); URINE CLARITY CLEAR; URINE COLOR YELLOW; URINE GLUCOSE-RANDOM NEGATIVE (Negative); URINE KETONES NEGATIVE (Negative); URINE LEUKOCYTES-REFLEX NEGATIVE (Negative); URINE NITRITE-REFLEX NEGATIVE (Negative); URINE PROTEIN NEGATIVE (Negative); URINE UROBILINOGEN 0.2 E.U./dl (0.2-1.0)
[2019-10-05 01:18] LABS: CASTS None Seen /LPF (None Seen); SQUAMOUS 4-10 Moderate /LPF (0-3)
[2019-10-05 01:19] LABS: BACTERIA-REFLEX 1-9 Few /HPF (None Seen); CRYSTALS None Seen /LPF (None Seen); URINE RBC >20 Many /HPF (0-2); URINE WBC-REFLEX None Seen /HPF (0-5)
[2019-10-05 04:02] VITALS: BP 129/68
== END 2019-10-05 04:05 | disposition home or self-care (01) ==
LOC: M.ERS 00:16
PROVIDERS: Emergency Medicine
DX: R31.9 Hematuria, unspecified (principal); F41.9 Anxiety disorder, unspecified; Z87.442 Personal history of urinary calculi; Z90.710 Acquired absence of both cervix and uterus; Z90.49 Acquired absence of other specified parts of digestive tract; Z88.6 Allergy status to analgesic agent; Z88.0 Allergy status to penicillin; Z88.8 Allergy status to other drugs, medicaments and biological substances

== ENCOUNTER 2019-10-08 00:10 | Emergency (ER) | payer OTHER ==
[~2019-10-08] VITALS: Ht 160 cm; Wt 63.5 kg
[2019-10-08 00:50] LABS: ABSOLUTE EOSINOPHILS 0.5 thou/uL (0.0-0.7); ABSOLUTE LYMPHOCYTES 3.1 thou/uL (0.8-5.3); ABSOLUTE MONOCYTES 0.6 thou/uL (0.0-1.2); ABSOLUTE NEUTROPHILS 4.4 thou/uL (1.6-8.1); BASOPHILS 0.2 %; EOSINOPHILS 5.6 %; HEMATOCRIT 40.2 % (37.0-47.0); HEMOGLOBIN 13.9 gm/dL (12.0-15.0); LYMPHOCYTES 36.5 %; MCH 29.1 pg (26.0-34.0); MCHC 34.6 g/dL (28.0-37.0); MCV 84.2 fL (80.0-100.0); MONOCYTES 6.6 %; MPV 7.9 fl. (7.2-11.1); NUCLEATED RBCS 0 /100WBC; PLATELET COUNT* 342 thou/uL (150-400); POLYS 51.1 %; RBC 4.77 mil/uL (4.20-5.00); RDW-CV 13.3 % (10.5-14.5); WBC 8.6 thou/uL (4.0-11.0)
[2019-10-08 00:53] LABS: CALCIUM 8.9 mg/dL (8.5-10.1); CREATININE 0.9 mg/dL (0.6-1.3); POTASSIUM 3.8 mmol/L (3.5-5.1)
[2019-10-08 01:14] LABS: URINE BILIRUBIN NEGATIVE (Negative); URINE BLOOD 3+ (Negative); URINE CLARITY CLEAR; URINE COLOR STRAW; URINE GLUCOSE-RANDOM NEGATIVE (Negative); URINE KETONES NEGATIVE (Negative); URINE LEUKOCYTES-REFLEX NEGATIVE (Negative); URINE NITRITE-REFLEX NEGATIVE (Negative); URINE PROTEIN NEGATIVE (Negative); URINE SPECIFIC GRAVITY <= 1.005 (1.005-1.030); URINE UROBILINOGEN 0.2 E.U./dl (0.2-1.0)
[2019-10-08 01:21] LABS: BACTERIA-REFLEX 1-9 Few /HPF (None Seen); CASTS None Seen /LPF (None Seen); CRYSTALS None Seen /LPF (None Seen); MUCUS 4-6 Moderate strn/LPF (None Seen); SQUAMOUS 0-3 Few /LPF (0-3); URINE RBC >20 Many /HPF (0-2); URINE WBC-REFLEX None Seen /HPF (0-5)
[2019-10-08 02:22] VITALS: BP 124/66
== END 2019-10-08 02:23 | disposition home or self-care (01) ==
LOC: M.ERS 00:10
PROVIDERS: Emergency Medicine
DX: N23 Unspecified renal colic (principal); Z88.6 Allergy status to analgesic agent; Z88.0 Allergy status to penicillin; Z88.8 Allergy status to other drugs, medicaments and biological substances; Z87.442 Personal history of urinary calculi; Z90.710 Acquired absence of both cervix and uterus; Z98.51 Tubal ligation status

== ENCOUNTER 2019-10-14 00:06 | Emergency (ER) | payer OTHER ==
[~2019-10-14] VITALS: Ht 160 cm; Wt 61.2 kg
[2019-10-14] MEDS ORDERED: PROTONIX40 M2 PO (00:15)
[2019-10-14 00:29] LABS: URINE BILIRUBIN NEGATIVE (Negative); URINE BLOOD 3+ (Negative); URINE CLARITY CLEAR; URINE COLOR YELLOW; URINE GLUCOSE-RANDOM NEGATIVE (Negative); URINE KETONES NEGATIVE (Negative); URINE LEUKOCYTES-REFLEX NEGATIVE (Negative); URINE NITRITE-REFLEX NEGATIVE (Negative); URINE PROTEIN NEGATIVE (Negative); URINE UROBILINOGEN 0.2 E.U./dl (0.2-1.0)
[2019-10-14 00:37] LABS: BACTERIA-REFLEX 1-9 Few /HPF (None Seen); CASTS None Seen /LPF (None Seen); CRYSTALS None Seen /LPF (None Seen); MUCUS 0-3 Light strn/LPF (None Seen); SQUAMOUS 0-3 Few /LPF (0-3); URINE RBC >20 Many /HPF (0-2); URINE WBC-REFLEX None Seen /HPF (0-5)
[2019-10-14 01:04] VITALS: BP 101/47
== END 2019-10-14 01:04 | disposition home or self-care (01) ==
LOC: M.ERS 00:06
PROVIDERS: Family Medicine
DX: G89.29 Other chronic pain (principal); R10.9 Unspecified abdominal pain; R31.9 Hematuria, unspecified; F41.9 Anxiety disorder, unspecified; Z87.442 Personal history of urinary calculi; Z90.710 Acquired absence of both cervix and uterus; Z88.6 Allergy status to analgesic agent; Z88.0 Allergy status to penicillin; Z88.8 Allergy status to other drugs, medicaments and biological substances

== ENCOUNTER 2020-05-01 20:22 | Emergency (ER) | payer OTHER ==
[~2020-05-01] VITALS: Ht 160 cm; Wt 59.0 kg
[~2020-05-01 20:22] MED LIST changes: +PROTONIX40 M2 PO
[2020-05-01 20:46] LABS: URINE BILIRUBIN NEGATIVE (Negative); URINE BLOOD 3+ (Negative); URINE COLOR YELLOW; URINE GLUCOSE-RANDOM NEGATIVE (Negative); URINE KETONES NEGATIVE (Negative); URINE LEUKOCYTES-REFLEX NEGATIVE (Negative); URINE NITRITE-REFLEX NEGATIVE (Negative); URINE PROTEIN NEGATIVE (Negative); URINE UROBILINOGEN 0.2 E.U./dl (0.2-1.0)
[2020-05-01 20:50] LABS: URINE CLARITY HAZY
[2020-05-01 21:13] LABS: MUCUS None Seen strn/LPF (None Seen); SQUAMOUS >10 Many /LPF (0-3)
[2020-05-01 21:14] LABS: CASTS None Seen /LPF (None Seen); CRYSTALS None Seen /LPF (None Seen); URINE RBC >20 Many /HPF (0-2); URINE WBC-REFLEX None Seen /HPF (0-5)
[2020-05-01 21:15] LABS: BACTERIA-REFLEX None Seen /HPF (None Seen)
[2020-05-01 21:21] LABS: ABSOLUTE BASOPHILS 0.1 thou/uL (0.0-0.2); ABSOLUTE EOSINOPHILS 0.4 thou/uL (0.0-0.7); ABSOLUTE LYMPHOCYTES 2.4 thou/uL (0.8-5.3); ABSOLUTE MONOCYTES 0.5 thou/uL (0.0-1.2); ABSOLUTE NEUTROPHILS 3.3 thou/uL (1.6-8.1); HEMATOCRIT 37.9 % (37.0-47.0); LYMPHOCYTES 36.5 %; MCHC 34.4 g/dL (28.0-37.0); MCV 87.1 fL (80.0-100.0); MONOCYTES 6.9 %; MPV 8.4 fl. (7.2-11.1); NUCLEATED RBCS 0 /100WBC; PLATELET COUNT* 258 thou/uL (150-400); POLYS 49.6 %; RBC 4.35 mil/uL (4.20-5.00); WBC 6.7 thou/uL (4.0-11.0)
[2020-05-01 21:29] LABS: CALCIUM 8.4 mg/dL (8.5-10.1); POTASSIUM 3.7 mmol/L (3.5-5.1)
[2020-05-01 21:33] LABS: ALBUMIN 3.7 g/dL (3.4-5.0); TOTAL BILIRUBIN 0.2 mg/dL (<0.1-1.0); TOTAL PROTEIN 7.2 g/dL (6.4-8.2)
[2020-05-01 23:16] VITALS: BP 132/66
== END 2020-05-01 23:18 | disposition home or self-care (01) ==
LOC: M.ERS 20:22
PROVIDERS: Emergency Medicine; Nurse Practitioner Family
DX: N23 Unspecified renal colic (principal); F41.9 Anxiety disorder, unspecified; Z87.442 Personal history of urinary calculi; Z90.49 Acquired absence of other specified parts of digestive tract; Z90.710 Acquired absence of both cervix and uterus; Z98.51 Tubal ligation status; Z88.0 Allergy status to penicillin; Z88.6 Allergy status to analgesic agent; Z88.8 Allergy status to other drugs, medicaments and biological substances

== ENCOUNTER 2020-05-03 23:32 | Emergency (ER) | payer OTHER ==
[~2020-05-03] VITALS: Ht 160 cm; Wt 60.3 kg
[2020-05-03 23:52] LABS: URINE BILIRUBIN NEGATIVE (Negative); URINE BLOOD 3+ (Negative); URINE CLARITY CLEAR; URINE COLOR YELLOW; URINE GLUCOSE-RANDOM NEGATIVE (Negative); URINE KETONES NEGATIVE (Negative); URINE LEUKOCYTES-REFLEX NEGATIVE (Negative); URINE NITRITE-REFLEX NEGATIVE (Negative); URINE PROTEIN NEGATIVE (Negative)
[2020-05-04] LABS: BACTERIA-REFLEX 1-9 Few /HPF (None Seen); CASTS None Seen /LPF (None Seen); CRYSTALS None Seen /LPF (None Seen); MUCUS 0-3 Light strn/LPF (None Seen); SQUAMOUS 0-3 Few /LPF (0-3); URINE RBC >20 Many /HPF (0-2); URINE WBC-REFLEX None Seen /HPF (0-5)
[2020-05-04 00:15] LABS: ABSOLUTE BASOPHILS 0.1 thou/uL (0.0-0.2); ABSOLUTE EOSINOPHILS 0.3 thou/uL (0.0-0.7); ABSOLUTE LYMPHOCYTES 2.6 thou/uL (0.8-5.3); ABSOLUTE MONOCYTES 0.4 thou/uL (0.0-1.2); ABSOLUTE NEUTROPHILS 3.6 thou/uL (1.6-8.1); BASOPHILS 1.2 %; EOSINOPHILS 4.4 %; HEMATOCRIT 36.2 % (37.0-47.0); HEMOGLOBIN 12.5 gm/dL (12.0-15.0); LYMPHOCYTES 36.7 %; MCH 30.3 pg (26.0-34.0); MCHC 34.5 g/dL (28.0-37.0); MCV 87.8 fL (80.0-100.0); MONOCYTES 6.1 %; MPV 8.6 fl. (7.2-11.1); NUCLEATED RBCS 0 /100WBC; PLATELET COUNT* 270 thou/uL (150-400); POLYS 51.6 %; RBC 4.13 mil/uL (4.20-5.00); RDW-CV 13.8 % (10.5-14.5)
[2020-05-04 00:17] LABS: CALCIUM 8.4 mg/dL (8.5-10.1); CREATININE 1.1 mg/dL (0.6-1.3)
[2020-05-04 00:21] LABS: ALBUMIN 3.5 g/dL (3.4-5.0); TOTAL BILIRUBIN 0.2 mg/dL (<0.1-1.0); TOTAL PROTEIN 6.8 g/dL (6.4-8.2)
[2020-05-04] MEDS ORDERED: PERCOCET 5-3251 EACH PO (00:34)
[2020-05-04] MEDS ORDERED: KEFLEX500 M1 PO (00:34)
[2020-05-04 00:50] VITALS: BP 115/73
== END 2020-05-04 00:50 | disposition home or self-care (01) ==
LOC: M.ERS 23:32
PROVIDERS: Emergency Medicine Emergency Medical Services
DX: N39.0 Urinary tract infection, site not specified (principal); R11.2 Nausea with vomiting, unspecified; Z87.442 Personal history of urinary calculi; Z90.710 Acquired absence of both cervix and uterus; Z98.51 Tubal ligation status; Z88.0 Allergy status to penicillin; Z88.6 Allergy status to analgesic agent; Z88.8 Allergy status to other drugs, medicaments and biological substances

== ENCOUNTER 2020-05-08 22:45 | Emergency (ER) | payer OTHER ==
[~2020-05-08] VITALS: Ht 160 cm; Wt 61.2 kg
[2020-05-09 01:05] LABS: URINE BILIRUBIN NEGATIVE (Negative); URINE BLOOD 3+ (Negative); URINE CLARITY CLEAR; URINE COLOR YELLOW; URINE GLUCOSE-RANDOM NEGATIVE (Negative); URINE KETONES NEGATIVE (Negative); URINE LEUKOCYTES-REFLEX NEGATIVE (Negative); URINE NITRITE-REFLEX NEGATIVE (Negative); URINE PROTEIN NEGATIVE (Negative); URINE SPECIFIC GRAVITY 1.025 (1.005-1.030)
[2020-05-09 01:24] LABS: POTASSIUM 3.6 mmol/L (3.5-5.1)
[2020-05-09 01:39] LABS: CALCIUM 8.7 mg/dL (8.5-10.1); CREATININE 0.9 mg/dL (0.6-1.3)
[2020-05-09 01:57] LABS: ABSOLUTE BASOPHILS 0.1 thou/uL (0.0-0.2); ABSOLUTE EOSINOPHILS 0.2 thou/uL (0.0-0.7); ABSOLUTE LYMPHOCYTES 2.4 thou/uL (0.8-5.3); ABSOLUTE MONOCYTES 0.5 thou/uL (0.0-1.2); ABSOLUTE NEUTROPHILS 4.4 thou/uL (1.6-8.1); BASOPHILS 1.2 %; EOSINOPHILS 2.6 %; HEMATOCRIT 40.2 % (37.0-47.0); HEMOGLOBIN 13.8 gm/dL (12.0-15.0); LYMPHOCYTES 31.1 %; MCH 30.2 pg (26.0-34.0); MCHC 34.2 g/dL (28.0-37.0); MCV 88.1 fL (80.0-100.0); MONOCYTES 7.1 %; MPV 8.3 fl. (7.2-11.1); NUCLEATED RBCS 0 /100WBC; PLATELET COUNT* 267 thou/uL (150-400); RBC 4.56 mil/uL (4.20-5.00); RDW-CV 13.5 % (10.5-14.5); WBC 7.6 thou/uL (4.0-11.0)
[2020-05-09 02:05] LABS: CASTS None Seen /LPF (None Seen); SQUAMOUS 4-10 Moderate /LPF (0-3); URINE RBC >20 Many /HPF (0-2); URINE WBC-REFLEX 0-5 Rare /HPF (0-5)
[2020-05-09 02:06] LABS: BACTERIA-REFLEX 1-9 Few /HPF (None Seen); CRYSTALS None Seen /LPF (None Seen)
[2020-05-09 05:18] VITALS: BP 135/66
== END 2020-05-09 05:18 | disposition home or self-care (01) ==
LOC: M.ERS 22:45
PROVIDERS: Emergency Medicine
DX: N23 Unspecified renal colic (principal); F41.9 Anxiety disorder, unspecified; Z87.442 Personal history of urinary calculi; Z90.49 Acquired absence of other specified parts of digestive tract; Z90.710 Acquired absence of both cervix and uterus; Z98.51 Tubal ligation status; Z88.0 Allergy status to penicillin; Z88.6 Allergy status to analgesic agent; Z88.8 Allergy status to other drugs, medicaments and biological substances

== ENCOUNTER 2020-10-11 11:38 | Emergency (ER) | payer OTHER, MEDICAID ==
[~2020-10-11] VITALS: Ht 162.6 cm; Wt 54.4 kg
[2020-10-11 12:56] VITALS: BP 126/68
== END 2020-10-11 12:58 | disposition home or self-care (01) ==
LOC: M.ERS 11:38
DX: S60.211A Contusion of right wrist, initial encounter (principal); Z90.710 Acquired absence of both cervix and uterus; Z79.899 Other long term (current) drug therapy; Z88.0 Allergy status to penicillin; Z88.5 Allergy status to narcotic agent; Z88.8 Allergy status to other drugs, medicaments and biological substances; X58.XXXA Exposure to other specified factors, initial encounter; Y93.89 Activity, other specified; Y92.89 Other specified places as the place of occurrence of the external cause; Y99.8 Other external cause status

== ENCOUNTER 2020-12-31 16:05 | Emergency (ER) | payer OTHER, MEDICAID ==
[~2020-12-31] VITALS: Ht 160 cm; Wt 56.2 kg
[2020-12-31 18:20] VITALS: BP 135/80
== END 2020-12-31 18:20 | disposition home or self-care (01) ==
LOC: M.ERS 16:05
DX: S16.1XXA Strain of muscle, fascia and tendon at neck level, initial encounter (principal); S50.01XA Contusion of right elbow, initial encounter; S80.10XA Contusion of unspecified lower leg, initial encounter; Z88.0 Allergy status to penicillin; Z88.5 Allergy status to narcotic agent; Z88.6 Allergy status to analgesic agent; Z88.8 Allergy status to other drugs, medicaments and biological substances; Z87.442 Personal history of urinary calculi; Z90.710 Acquired absence of both cervix and uterus; Z98.51 Tubal ligation status; Y08.89XA Assault by other specified means, initial encounter; Y93.89 Activity, other specified; Y92.89 Other specified places as the place of occurrence of the external cause; Y99.8 Other external cause status

== ENCOUNTER 2021-05-04 17:00 | Emergency (ER) | payer OTHER, MEDICAID ==
[~2021-05-04] VITALS: Ht 160 cm; Wt 56.7 kg
[2021-05-04] MEDS ORDERED: NORCO5 PO (17:10)
[2021-05-04 18:24] VITALS: BP 108/66
== END 2021-05-04 18:26 | disposition home or self-care (01) ==
LOC: M.ERS 17:00
DX: J06.9 Acute upper respiratory infection, unspecified (principal); F41.9 Anxiety disorder, unspecified; Z20.822 Contact with and (suspected) exposure to COVID-19; Z90.49 Acquired absence of other specified parts of digestive tract; Z90.710 Acquired absence of both cervix and uterus; Z79.891 Long term (current) use of opiate analgesic; Z79.899 Other long term (current) drug therapy; Z88.8 Allergy status to other drugs, medicaments and biological substances; Z88.5 Allergy status to narcotic agent; Z88.0 Allergy status to penicillin

== ENCOUNTER 2021-07-01 17:19 | Emergency (ER) | payer OTHER, MEDICAID ==
[~2021-07-01] VITALS: Ht 160 cm; Wt 59.0 kg
[~2021-07-01 17:19] MED LIST changes: +NORCO5 PO
[2021-07-01 17:37] LABS: URINE BILIRUBIN NEGATIVE (Negative); URINE BLOOD 3+ (Negative); URINE CLARITY CLEAR; URINE COLOR YELLOW; URINE GLUCOSE-RANDOM NEGATIVE (Negative); URINE KETONES NEGATIVE (Negative); URINE LEUKOCYTES-REFLEX NEGATIVE (Negative); URINE NITRITE-REFLEX NEGATIVE (Negative); URINE PROTEIN NEGATIVE (Negative); URINE UROBILINOGEN 0.2 E.U./dl (0.2-1.0)
[2021-07-01 17:47] LABS: BACTERIA-REFLEX 1-9 Few /HPF (None Seen); CASTS None Seen /LPF (None Seen); CRYSTALS None Seen /LPF (None Seen); SQUAMOUS 4-10 Moderate /LPF (0-3); URINE RBC >20 Many /HPF (0-2); URINE WBC-REFLEX 0-5 Rare /HPF (0-5)
[2021-07-01 18:04] LABS: ABSOLUTE EOSINOPHILS 0.3 thou/uL (0.0-0.7); ABSOLUTE MONOCYTES 0.5 thou/uL (0.0-1.2); ABSOLUTE NEUTROPHILS 2.9 thou/uL (1.6-8.1); BASOPHILS 0.7 %; HEMATOCRIT 36.6 % (37.0-47.0); HEMOGLOBIN 12.4 gm/dL (12.0-15.0); LYMPHOCYTES 44.6 %; MCHC 33.9 g/dL (28.0-37.0); MCV 85.3 fL (80.0-100.0); MONOCYTES 7.2 %; MPV 7.7 fl. (7.2-11.1); NUCLEATED RBCS 0 /100WBC; PLATELET COUNT* 230 thou/uL (150-400); POLYS 42.5 %; RBC 4.29 mil/uL (4.20-5.00); WBC 6.7 thou/uL (4.0-11.0)
[2021-07-01 18:14] LABS: CALCIUM 8.2 mg/dL (8.5-10.1); CREATININE 0.8 mg/dL (0.6-1.3); POTASSIUM 3.9 mmol/L (3.5-5.1)
[2021-07-01 18:18] LABS: ALBUMIN 3.4 g/dL (3.4-5.0); TOTAL BILIRUBIN 0.1 mg/dL (<0.1-1.0); TOTAL PROTEIN 6.5 g/dL (6.4-8.2)
[2021-07-01 18:51] VITALS: BP 129/62
== END 2021-07-01 18:53 | disposition home or self-care (01) ==
LOC: M.ERS 17:19
PROVIDERS: Physician Assistant
DX: R10.31 Right lower quadrant pain (principal); R11.2 Nausea with vomiting, unspecified; Z88.8 Allergy status to other drugs, medicaments and biological substances; Z88.5 Allergy status to narcotic agent; Z88.0 Allergy status to penicillin; Z90.710 Acquired absence of both cervix and uterus; Z98.51 Tubal ligation status; Z87.442 Personal history of urinary calculi